=== PATIENT | female | born 1955 | race Caucasian/White ===

== ENCOUNTER 2024-01-29 12:51 | Day surgery (SDC) | payer OTHER, SELFPAY ==
[2024-01-29 12:52] VITALS: BMI 24.1
--- NOTE | 2024-01-29 13:02 | MHC.SHP ---
Pre-Procedural Eval Section A - 24 Hr Update-Section A only Date of Service: 01/29/24 The patient is an INPATIENT: No Changes since office visit: No Cold of Flu in the past 2 weeks, No New Medical Problems, No Changes in Medication and No Patient answered all questions The patient has been examined within 24 hours of the surgical procedure. The History & Physical has been completed within 30 days and I have reviewed it.: Yes Section B - Complete if H&P > 30 days Chief Complaint: Diverticulitis of intestine, part unspecified, wit Allergies: Allergies Allergy/AdvReac Type Severity Reaction Status Date / Time Seasonal Allergies Allergy Unknown Verified 01/28/24 08:01 Plan I have reviewed the history and physical and performed a pertinent physical examination on my patient. No changes have occurred unless specified. Time Spent With Patient Time: Total time managing care of this patient today ____ minutes.
[2024-01-29 13:10] VITALS: BP 110/67; PULSE 92; RESP 16; TEMP 36.1; O2SAT 98
[2024-01-29 13:47] VITALS: BP 90/47; PULSE 79; RESP 16; TEMP 36.6; O2SAT 94
[2024-01-29 14:02] VITALS: BP 97/57; PULSE 71; RESP 16; O2SAT 95
--- NOTE | 2024-01-29 14:05 | OP_ITS ---
DATE OF SERVICE: 01/29/2024 SURGEON: Sen Willett MD INDICATIONS: Diverticulitis. PREOPERATIVE DIAGNOSIS: POSTOPERATIVE DIAGNOSIS: PROCEDURE PERFORMED: Colonoscopy to the terminal ileum. ESTIMATED BLOOD LOSS: COMPLICATIONS: ANESTHESIA: Monitored anesthesia care. ASSISTANTS: SPECIMENS: DESCRIPTION OF PROCEDURE: A history and physical was performed. The risks and benefits of the procedure were explained to the patient, and informed consent was obtained. The patient was placed in the left lateral decubitus position. A digital rectal exam was performed and was found to be normal. The Olympus pediatric video colonoscope was introduced into the rectum and advanced to the cecum. The cecum was identified by transillumination, palpation, and identification of ileocecal valve. Examination was performed. The scope was removed. She tolerated the procedure well and was returned to the recovery area in stable condition. FINDINGS: The terminal ileum was briefly examined and appeared normal. The visualized colonic mucosa was within normal limits without evidence of masses or ulcers. There was mild to moderate sigmoid diverticulosis. Retroflexed examination showed internal hemorrhoids that were moderate in size. No polyps were identified. IMPRESSION: Diverticulosis. RECOMMENDATION: 1. Follow up as needed. 2. High-fiber diet. 3. Repeat colonoscopy is recommended in 10 years for average-risk individuals. This will be optional based on her age. MD MELYSSA Gipson/[facility] / [id number]
[2024-01-29 14:17] VITALS: BP 107/59; PULSE 65; RESP 16; O2SAT 97
[2024-01-29 14:32] VITALS: BP 106/59; PULSE 62; RESP 16; TEMP 36.6; O2SAT 97
== END 2024-01-29 14:52 | disposition home or self-care (01) ==
PROVIDERS: PCP Internal Medicine; Visit Provider Internal Medicine Gastroenterology
PROC: 0DJD8ZZ Inspection of Lower Intestinal Tract, Via Natural or Artificial Opening Endoscopic (ICD-10-PCS; CPT 45378; principal; 2024-01-29 13:30)
DX: K57.30 Diverticulosis of large intestine without perforation or abscess without bleeding (principal); K64.8 Other hemorrhoids; Z87.19 Personal history of other diseases of the digestive system
CPT/HCPCS: 45378; J1596; J2250; J2704